=== PATIENT | female | born 1955 | race Caucasian/White ===

== ENCOUNTER 2020-01-15 20:49 | Emergency (ER) | payer OTHER ==
[~2020-01-15] VITALS: Ht 162.5 cm; Wt 72.6 kg
[~2020-01-15 20:49] MED LIST: ABILIFY15 MG PO; ACTOS15 MG PO; ALPRAZOLAM0.25 MG PO; ATORVASTATIN CA80 MG PO; BIAXIN500 MG PO; BUPROPION300 MG PO; ENALAPRIL5 MG PO; FLEXERIL10 MG PO; GLIMEPIRIDE4 MG PO; LEVOTHYROXINE0.05 MG PO; METFORMIN500 MG PO; MOTRIN600 MG PO; NAPROSYN500 MG PO; RISPERDAL3 MG PO; ZETIA10 MG PO; ZOLOFT100 MG PO
[2020-01-15 21:52] VITALS: BP 132/73
== END 2020-01-16 02:08 | disposition home or self-care (01) ==
LOC: ED 20:49
DX: S62.617A Displaced fracture of proximal phalanx of left little finger, initial encounter for closed fracture (principal); I10 Essential (primary) hypertension; E11.9 Type 2 diabetes mellitus without complications; F32.9 Major depressive disorder, single episode, unspecified; Z79.899 Other long term (current) drug therapy; Z79.84 Long term (current) use of oral hypoglycemic drugs; X58.XXXA Exposure to other specified factors, initial encounter; Y93.89 Activity, other specified; Y92.89 Other specified places as the place of occurrence of the external cause; Y99.8 Other external cause status

== ENCOUNTER 2023-12-18 17:07 | Emergency (ER) | payer OTHER ==
[~2023-12-18] VITALS: Ht 157.4 cm; Wt 69.9 kg
[2023-12-18 17:43] VITALS: BP 126/51
[2023-12-18] MEDS ORDERED: Acetaminophen/Oxycodone 5 MG/325 MG TABLET PO ONE (17:55)
== END 2023-12-18 18:30 | disposition home or self-care (01) ==
LOC: ED 17:07
DX: M65.341 Trigger finger, right ring finger (principal); Z90.710 Acquired absence of both cervix and uterus; Z98.890 Other specified postprocedural states

== ENCOUNTER 2023-12-23 20:42 | Emergency (ER) | payer OTHER ==
[~2023-12-23] VITALS: Ht 157.4 cm; Wt 69.9 kg
[2023-12-23 20:49] VITALS: BP 137/52
[2023-12-23] MEDS ORDERED: Tdap Vaccine 0.5 ML SYR (Adult Vaccine) IM ONE (21:00)
[2023-12-23] MEDS ORDERED: MUPIROCIN 15 GM TUBE T ONE (21:00)
== END 2023-12-23 21:13 | disposition home or self-care (01) ==
LOC: ED 20:42
DX: S51.811A Laceration without foreign body of right forearm, initial encounter (principal); I10 Essential (primary) hypertension; E11.9 Type 2 diabetes mellitus without complications; M19.90 Unspecified osteoarthritis, unspecified site; Z90.710 Acquired absence of both cervix and uterus; Z98.890 Other specified postprocedural states; W26.8XXA Contact with other sharp object(s), not elsewhere classified, initial encounter; Y93.89 Activity, other specified; Y92.89 Other specified places as the place of occurrence of the external cause; Y99.8 Other external cause status

== ENCOUNTER → 2024-03-14 | Outpatient (CLI) | payer OTHER | END | disposition home or self-care (01) | LOC: LAB 14:38 | PROVIDERS: ATTEND Internal Medicine Critical Care Medicine | DX: R53.83 Other fatigue (principal) ==

== ENCOUNTER → 2024-08-07 | Day surgery (SDC) | payer OTHER ==
[2024-08-02 10:25] LABS: POTASSIUM 4.1 mmol/L (3.4-5.1)
[~2024-08-07] VITALS: Ht 160 cm; Wt 69.9 kg
[~2024-08-07] MED LIST changes: +BUPivacaine 0.5% 30 ML IV ONE; +LANTUS100 UNIT/1 SC; +Lactated Ringer's Solution 1,000 ML IV ONE; +Lidocaine Hydrochloride 30 ML VIAL ONE; +Lidocaine Hydrochloride 5 ML VIAL IV ONE; +PROPOFOL 200 MG/20 ML VIAL IV ONE; +TRULICITY1.5 MG/0.5 SC; +ceFAZolin sodium 1GM/10ML IV SCH; +ceFAZolin sodium/sodium chlor 10 ML IV ONE
[2024-08-07 07:00] VITALS: BP 154/51
[2024-08-07 08:36] VITALS: BP 129/60
[2024-08-07 08:51] VITALS: BP 115/46
[2024-08-07 09:06] VITALS: BP 125/44
== END | disposition home or self-care (01) ==
LOC: SDC 08-06 10:15
PROVIDERS: ATTEND Orthopaedic Surgery
DX: M65.341 Trigger finger, right ring finger (principal); M65.841 Other synovitis and tenosynovitis, right hand; I10 Essential (primary) hypertension; E78.00 Pure hypercholesterolemia, unspecified; E10.9 Type 1 diabetes mellitus without complications; F41.9 Anxiety disorder, unspecified; E07.9 Disorder of thyroid, unspecified; F31.9 Bipolar disorder, unspecified; Z90.710 Acquired absence of both cervix and uterus; Z98.890 Other specified postprocedural states; Z79.4 Long term (current) use of insulin; Z79.899 Other long term (current) drug therapy

== ENCOUNTER 2024-12-23 12:23 | Emergency (ER) | payer OTHER ==
[~2024-12-23] VITALS: Ht 157.4 cm; Wt 69.9 kg
[~2024-12-23 12:23] MED LIST changes: -BUPivacaine 0.5% 30 ML IV ONE; -Lactated Ringer's Solution 1,000 ML IV ONE; -Lidocaine Hydrochloride 30 ML VIAL ONE; -Lidocaine Hydrochloride 5 ML VIAL IV ONE; -PROPOFOL 200 MG/20 ML VIAL IV ONE; -ceFAZolin sodium 1GM/10ML IV SCH; -ceFAZolin sodium/sodium chlor 10 ML IV ONE
[2024-12-23 12:49] VITALS: BP 126/48
[2024-12-23] MEDS ORDERED: NAPROXEN 250 MG TAB PO ONE (15:45)
[2024-12-23] MEDS ORDERED: NAPROSYN500 MG PO (17:07)
== END 2024-12-23 17:19 | disposition home or self-care (01) ==
LOC: ED 12:23
DX: M77.31 Calcaneal spur, right foot (principal); M72.2 Plantar fascial fibromatosis; Z90.710 Acquired absence of both cervix and uterus

== ENCOUNTER → 2025-02-28 | Day surgery (SDC) | payer OTHER ==
[~2025-02-28] VITALS: Ht 158.7 cm; Wt 69.9 kg
[~2025-02-28] MED LIST changes: +ACETAMINOPHEN 100 ML IV ONE; +HUMALOG100 UNIT/1 SC; +HYDRALAZINE HYD50 MG PO; +LEVOTHYROXINE100 MC1 PO; +Lactated Ringer's Solution 1,000 ML IV ONE; +Lidocaine Hydrochloride 2% 5 ML SDV IV ONE; +Lidocaine Hydrochloride 30 ML VIAL ONE; +MAGNESIUM400 M1 PO; +PROPOFOL 200 MG/20 ML VIAL IV ONE; +ROPINIROLE HYDRO1 MG PO; +TRULICITY3 MG/0.5 M SQ; +VITAMIN D310 MC1 GT; +ceFAZolin sodium 1GM/10ML IV SCH; +ceFAZolin sodium/sodium chlor 10 ML IV ONE
[2025-02-28 06:52] VITALS: BP 138/63
[2025-02-28 07:28] LABS: BUN 18.0 mg/dl (9-23)
[2025-02-28 08:13] VITALS: BP 132/56
[2025-02-28 08:28] VITALS: BP 128/58
[2025-02-28 08:43] VITALS: BP 134/63
== END | disposition home or self-care (01) ==
LOC: SDC 02-25 11:00
PROVIDERS: ATTEND Orthopaedic Surgery
DX: M65.321 Trigger finger, right index finger (principal); M65.351 Trigger finger, right little finger; M76.61 Achilles tendinitis, right leg; I10 Essential (primary) hypertension; E11.9 Type 2 diabetes mellitus without complications; M19.90 Unspecified osteoarthritis, unspecified site; F41.9 Anxiety disorder, unspecified; F32.89 Other specified depressive episodes; E78.00 Pure hypercholesterolemia, unspecified; Z98.890 Other specified postprocedural states